=== PATIENT | female | born 1985 | race Hispanic/Latino ===

== ENCOUNTER 2017-03-15 20:04 | Emergency (ER) | payer OTHER ==
[2017-03-15 20:11] VITALS: BP 135/75; PULSE 89; RESP 16; TEMP 99.6; O2SAT 99
[2017-03-15] MEDS ORDERED: Dexamethasone 4 mg/1 ml IM ONE (20:52)
[2017-03-15] MEDS ORDERED: Absorbable Gelatin Sponge Size 12-7 TP ONE (20:52)
[2017-03-15] MEDS ORDERED: Dexamethasone 4 mg/1 ml ONE (21:01)
--- NOTE | 2017-03-15 21:34 | ED PDOC ---
HPI: CCC, URI, Sore Throat Time Seen by Provider: 03/15/17 20:14 Chief Complaint (Nursing): ENT Problem Chief Complaint (Provider): ENT Problem History Per: Patient History/Exam Limitations: no limitations Onset/Duration Of Symptoms: Mins (prior to arrival ) Additional Complaint(s): Harper Apodaca, 31 year old female presents to the ED stating she developed an earache today bilaterally, greatest in her left ear. The patient reports being seen in urgent care and was administered Ciprodex, but was unable to place the drops in her left ear due to the swelling. The patient reports being , stating "her last menstrual period was 2-3 weeks ago". The patient has not taken any care. She denies fever and has taken Tylenol for the pain with her last dose taken prior to arrival. PMD: None provided Past Medical History Reviewed: Historical Data, Nursing Documentation, Vital Signs Vital Signs: Last Vital Signs Temp 99.6 F 03/15/17 20:09 Pulse 89 03/15/17 20:09 Resp 16 03/15/17 20:09 BP 135/75 03/15/17 20:09 Pulse Ox 99 03/15/17 23:42 - Family History Family History: States: Unknown Family Hx - Home Medications Home Medications: Ambulatory Orders Medication Instructions Recorded predniSONE [Prednisone] 40 mg PO DAILY #4 tab 03/15/17 Amoxicillin [Amoxil 500 mg Cap] 500 mg PO Q8 #30 cap 03/16/17 - Allergies Allergies/Adverse Reactions: Allergies Allergy/AdvReac Type Severity Reaction Status Date / Time No Known Allergies Allergy Verified 03/15/17 20:12 Review of Systems ROS Statement: Except As Marked, All Systems Reviewed And Found Negative Constitutional: Negative for: Fever ENT: Positive for: Ear Pain (bilateral earache and left ear swelling) Physical Exam - Reviewed Nursing Documentation Reviewed: Yes Vital Signs Reviewed: Yes - Physical Exam Appears: Positive for: Well, Non-toxic, No Acute Distress Head Exam: Positive for: ATRAUMATIC, NORMAL INSPECTION, NORMOCEPHALIC ENT: Positive for: TM Is/Are (right ear tm is visualized, nonerythematous, and nonbulging; left ear tm - unable to visualize due to large amount of swelling), Other (right ear canal - minimal exudate and minimal edema; no mastoid tenderness bilaterally; bilateral auricles - without erythema, warmth, or swelling ) - Laboratory Results Urine POC: Positive - ECG O2 Sat by Pulse Oximetry: 99 (RA) Pulse Ox Interpretation: Normal - Progress ED Course And Treament: Pt. left with Rx for Amoxicillin. Spoke with patient on 03/16/17 1200 and Rx for Amoxicillin called into pharmacy [phone]. Pt. states she is feeling better. Medical Decision Making Medical Decision Making: Impression: Bilateral earache Plan: * Ear wick placed by [facility] in left ear canal * Decadron Inj 10 mg IM Scribe Attestation: Documented by Sharlene Patel, acting as a scribe for Sunny Perla PA-C. Provider Scribe Attestation: All medical record entries made by the Scribe were at my direction and personally dictated by me. I have reviewed the chart and agree that the record accurately reflects my personal performance of the history, physical exam, medical decision making, and the department course for this patient. I have also personally directed, reviewed, and agree with the discharge instructions and disposition. Disposition - Clinical Impression Clinical Impression: Otitis externa - Patient ED Disposition Is Patient to be Admitted: No - Disposition Referrals: [facility] [Outside] Keshav Ladd MD [Staff Provider] - Disposition Time: 21:00 Condition: IMPROVED Additional Instructions: FOLLOW UP WITH YOUR ENT ON FRIDAY WITHOUT FAIL TAKE TYLENOL AT HOME FOR YOUR PAIN FOLLOW UP WITH YOUR OBGYN FOR CARE Prescriptions: Amoxicillin [Amoxil 500 mg Cap] 500 mg PO Q8 #30 cap predniSONE [Prednisone] 40 mg PO DAILY #4 tab Instructions: Otitis Externa (ED) Print Language: LATVIAN
== END 2017-03-15 21:48 | disposition home or self-care (01) ==
LOC: H.ER 20:04
DX: H60.92 Unspecified otitis externa, left ear (principal); Z33.1 Pregnant state, incidental